=== PATIENT | male | born 1930 | race Caucasian/White ===

== ENCOUNTER → 2016-09-11 | Outpatient (CLI) | payer MEDICARE ==
[2016-09-11 10:20] LABS: MEAN CORPUSCULAR HGB CONC 32.6 g/dL (31.0-37.0); MEAN PLATELET VOLUME 9.1 FL (6.0-9.5); PLATELET COUNT 159 10^3uL (150-450); WHITE BLOOD COUNT 4.18 10^3uL (4.0-11.0)
[2016-09-11 10:28] LABS: MEAN CORPUSCULAR HEMOGLOBIN 32.5 PG (26.0-34.0); MEAN CORPUSCULAR VOLUME 100 FL (80-100)
[2016-09-11 10:42] LABS: BAND NEUTROPHILS % 0 % (0-6); EOSINOPHILS % 2 % (0-4); LYMPHOCYTES # 1.3 #; MONOCYTES # 0.2 #; MONOCYTES % 5 % (3-11); RBC MORPH NORMAL (NORMAL); SEGMENTED NEUTROPHILS % 61 % (51-67); TOTAL CELLS COUNTED 100
[2016-09-11 11:20] LABS: ALBUMIN 3.5 g/dL (3.4-5.0); ANION GAP 15.3 MEQ/L (3-15); TOTAL PROTEIN 6.5 g/dL (6.4-8.5)
== END ==
LOC: LAB 09:59
PROVIDERS: ATTEND Internal Medicine Hematology & Oncology
DX: E11.42 Type 2 diabetes mellitus with diabetic polyneuropathy (principal); C79.51 Secondary malignant neoplasm of bone; C61 Malignant neoplasm of prostate
CPT/HCPCS: 36415; 80053; 83036; 84153; 85007; 85027

== ENCOUNTER → 2016-10-09 | Outpatient (CLI) | payer MEDICARE ==
[2016-10-09 10:10] LABS: MEAN CORPUSCULAR HGB CONC 34.8 g/dL (31.0-37.0); MEAN CORPUSCULAR VOLUME 96 FL (80-100); MEAN PLATELET VOLUME 9.3 FL (6.0-9.5); PLATELET COUNT 135 10^3uL (150-450); WHITE BLOOD COUNT 3.69 10^3uL (4.0-11.0)
[2016-10-09 10:18] LABS: MEAN CORPUSCULAR HEMOGLOBIN 33.3 PG (26.0-34.0)
[2016-10-09 10:31] LABS: BAND NEUTROPHILS % 0 % (0-6); EOSINOPHILS % 2 % (0-4); MONOCYTES # 0.2 #; MONOCYTES % 5 % (3-11); SEGMENTED NEUTROPHILS % 51 % (51-67)
[2016-10-09 10:32] LABS: ALBUMIN 3.7 g/dL (3.4-5.0); CALCULATED IONIZED CALCIUM 3.9 mg/dL (3.8-4.6); LYMPHOCYTES # 1.3 #; RBC MORPH NORMAL (NORMAL); TOTAL CELLS COUNTED 100; TOTAL PROTEIN 6.7 g/dL (6.4-8.5)
== END ==
LOC: LAB 09:51
PROVIDERS: ATTEND Internal Medicine Hematology & Oncology
DX: C79.51 Secondary malignant neoplasm of bone (principal); C61 Malignant neoplasm of prostate
CPT/HCPCS: 36415; 80053; 84153; 85007; 85027

== ENCOUNTER → 2016-11-06 | Outpatient (CLI) | payer MEDICARE ==
[2016-11-06 10:38] LABS: BASOPHILS % (AUTO) 0 % (0-2); EOSINOPHILS # (AUTO) 0.1 10^3uL; EOSINOPHILS % (AUTO) 2 % (0-4); LYMPHOCYTES # (AUTO) 1.4 X10^3; MEAN CORPUSCULAR HGB CONC 33.1 g/dL (31.0-37.0); MEAN PLATELET VOLUME 9.5 FL (6.0-9.5); MONOCYTES # (AUTO) 0.4 X10^3; MONOCYTES % (AUTO) 8 % (3-11); NEUTROPHILS % (AUTO) 60 % (51-67); PLATELET COUNT 144 10^3uL (150-450)
[2016-11-06 10:41] LABS: MEAN CORPUSCULAR HEMOGLOBIN 32.5 PG (26.0-34.0); MEAN CORPUSCULAR VOLUME 98 FL (80-100)
[2016-11-06 11:00] LABS: ALBUMIN 3.4 g/dL (3.4-5.0); ANION GAP 12.1 MEQ/L (3-15); CALCULATED IONIZED CALCIUM 4.2 mg/dL (3.8-4.6); TOTAL PROTEIN 6.3 g/dL (6.4-8.5)
== END ==
LOC: LAB 10:05
PROVIDERS: ATTEND Internal Medicine Hematology & Oncology
DX: C79.51 Secondary malignant neoplasm of bone (principal); C61 Malignant neoplasm of prostate
CPT/HCPCS: 36415; 80053; 84153; 85025

== ENCOUNTER → 2016-11-29 | Outpatient (CLI) | payer MEDICARE ==
[~2016-11-29] MED LIST: ASCO10006 PO; ASPI-860 PO; BICA50TA PO; CALC500T55 PO; DENO120V SQ; FURO40TA4 PO; GLIM1TAB PO; ISOS20TA5 PO; LEUP7.5D2 IM; LORA0.5T PO; METF500T4 PO; ZINC50TA4 PO
[2016-11-29 10:15] LABS: BASOPHILS % (AUTO) 1 % (0-2); EOSINOPHILS # (AUTO) 0.2 10^3uL; EOSINOPHILS % (AUTO) 3 % (0-4); LYMPHOCYTES # (AUTO) 1.4 X10^3; MEAN CORPUSCULAR HGB CONC 33.3 g/dL (31.0-37.0); MEAN PLATELET VOLUME 9.8 FL (6.0-9.5); MONOCYTES # (AUTO) 0.5 X10^3; MONOCYTES % (AUTO) 10 % (3-11); NEUTROPHILS # (AUTO) 2.7 X10^3; NEUTROPHILS % (AUTO) 57 % (51-67); PLATELET COUNT 128 10^3uL (150-450)
[2016-11-29 10:22] LABS: MEAN CORPUSCULAR HEMOGLOBIN 32.7 PG (26.0-34.0); MEAN CORPUSCULAR VOLUME 98 FL (80-100)
[2016-11-29 11:02] LABS: ALBUMIN 3.8 g/dL (3.4-5.0); ANION GAP 14.7 MEQ/L (3-15); CALCULATED IONIZED CALCIUM 3.9 mg/dL (3.8-4.6); TOTAL PROTEIN 6.8 g/dL (6.4-8.5)
== END ==
LOC: LAB 10:05
PROVIDERS: ATTEND Internal Medicine Hematology & Oncology
DX: C79.51 Secondary malignant neoplasm of bone (principal); C61 Malignant neoplasm of prostate
CPT/HCPCS: 36415; 80053; 84153; 85025

== ENCOUNTER → 2016-12-27 | Outpatient (CLI) | payer MEDICARE ==
[2016-12-27 08:46] LABS: MEAN CORPUSCULAR HGB CONC 33.7 g/dL (31.0-37.0); MEAN PLATELET VOLUME 9.7 FL (6.0-9.5); PLATELET COUNT 117 10^3uL (150-450); WHITE BLOOD COUNT 5.95 10^3uL (4.0-11.0)
[2016-12-27 09:00] LABS: BILIRUBIN,URINE Negative (Negative); CLARITY,URINE Clear; COLOR,URINE Yellow; GLUCOSE, URINE (UA) Negative (Negative); LEUKOCYTE ESTERASE ,URINE Negative (Negative); PH,URINE 5.5 (5.0 - 8.0); UROBILINOGEN,URINE 0.2 mg/dL (0.2-1.0)
[2016-12-27 09:06] LABS: URINE CENTRIFUGED VOLUME 12 mL
[2016-12-27 09:14] LABS: MEAN CORPUSCULAR HEMOGLOBIN 32.9 PG (26.0-34.0); MEAN CORPUSCULAR VOLUME 98 FL (80-100)
[2016-12-27 09:30] LABS: ALBUMIN 3.8 g/dL (3.4-5.0); ANION GAP 16.3 MEQ/L (3-15); TOTAL PROTEIN 6.7 g/dL (6.4-8.5)
[2016-12-27 09:35] LABS: BAND NEUTROPHILS % 0 % (0-6); EOSINOPHILS % 1 % (0-4); LYMPHOCYTES # 0.6 #; MONOCYTES # 0.2 #; MONOCYTES % 3 % (3-11); RBC MORPH NORMAL (NORMAL); SEGMENTED NEUTROPHILS % 86 % (51-67); TOTAL CELLS COUNTED 100
== END ==
LOC: LAB 08:27
PROVIDERS: ATTEND Internal Medicine Hematology & Oncology
DX: C79.51 Secondary malignant neoplasm of bone (principal); C61 Malignant neoplasm of prostate; E11.42 Type 2 diabetes mellitus with diabetic polyneuropathy; R53.83 Other fatigue
CPT/HCPCS: 36415; 80053; 80061; 81003; 81015; 83036; 84439; 84443; 84550; 85007; 85025; G0103; 84153